=== PATIENT | male | born 1955 | race Caucasian/White ===

== ENCOUNTER → 2018-05-05 | Outpatient (CLI) | payer OTHER ==
--- NOTE | 2018-05-05 16:34 | XR ---
EXAMINATION TYPE: XR chest 2V DATE OF EXAM: 05/05/2018 COMPARISON: None HISTORY: 63 year-old male shortness of breath TECHNIQUE: Frontal and lateral views FINDINGS: Heart normal size. Aorta and pulmonary vasculature within normal limits. Mild interstitial prominence have a chronic appearance. No consolidation or pleural effusion. IMPRESSION: Chronic appearing changes without acute cardiopulmonary process.
== END | disposition home or self-care (01) ==
LOC: RADXRMAIN 16:16
PROVIDERS: ATTEND Family Medicine
DX: R06.02 Shortness of breath (principal)
CPT/HCPCS: 71046

== ENCOUNTER → 2018-07-14 | Outpatient (CLI) | payer MEDICARE, OTHER ==
--- NOTE | 2018-07-14 20:21 | CONS ---
CONSULTATION REASON FOR CONSULTATION: Obstructive sleep apnea. 63-year-old male patient diagnosed having obstructive sleep apnea more than 10 years ago. After his initial machine, the patient updated his machine around 2 years ago and he has a Resmet air sense unit which is set at a pressure of 7 cm of water. He is using an Airfit P10 nose pillow. He was asked by his Medicare to come in and establish himself at our sleep center for further care. He is also requesting a refill on supplies. While on treatment, he has been successfully treated. The patient has no snoring. He does not quit breathing while on the treatment. He has been using CPAP for more than 10 years and his new machine was given to him around 2-3 years ago. Medicare demanded this evaluation. No insomnia. No choking. No gasping. No nocturia. No sleepwalking or sleep talking. A few panic attacks have been reported. No palpitation. He goes to bed around 1:00 am, wakes up 9:00 am in the morning. Averages around 7-8 hours of sleep. He wears a bite splint. No snoring while on the treatment. No recent weight gain or weight loss. He thinks his treatment has been essentially successful for now and his [place] score is only 2. PAST MEDICAL HISTORY: Obstructive sleep apnea. PAST SURGICAL HISTORY: Hernia repair. DRUG ALLERGIES: HAYFEVER. OUTPATIENT MEDICATION: Omeprazole 20 mg p.o. daily. He was given recently a prednisone burst taper regarding an acute pulmonary respiratory irritant exposure. He has also taking Fioricet on a p.r.n. basis for tension headaches. SOCIAL HISTORY: The patient is a nonsmoker. No history of alcohol, no history of IV drugs. FAMILY HISTORY: Negative for sleep apnea. REVIEW OF SYSTEMS: Fourteen-point review of system was done. Positive findings are mentioned above in history of present illness. His weight has been stable at 180. Takes no naps during the day. He sleeps on his side. No TV watching in the bedroom. No hallucinations. No sleep paralysis. No falling asleep while driving. No heartburn at this point in time. PHYSICAL EXAMINATION: BP is 151/77, pulse 78, respirations 16, temperature 98.0. Saturation 95% on room air. Height is 5 feet, 7 inches, weight is 187. Neck size 16 inches. GENERAL APPEARANCE: Calm, comfortable. Head is atraumatic, normocephalic. NECK: Supple. No JVD. No goiter. No neck masses. Mallampati class IV. LUNGS: Clear to auscultation. HEART: Sounds regular rate and rhythm. Normal S1, S2. No S3. No murmurs. ABDOMEN: Soft, nontender. No organomegaly. EXTREMITIES: No edema. No cyanosis or clubbing. Neurological is alert x3. No focal neurological deficits. PSYCHIATRIC: Negative for anxiety or depression. Skin is negative for any wounds or ulceration. IMPRESSION: Obstructive sleep apnea currently on CPAP pressure of 7 cm of water. Treatment is successful and the patient has no hypersomnia or sleepiness. PLAN: 1. Continue CPAP at same level of pressure which is 7 cm of water. 2. The patient is using an AirFit P10 nose pillows. I offered him a Dream wear under the nose mask which he liked. This will be used as a medium size. 3. Implement good sleep hygiene measures. 4. See me back in a year's time in follow up. 5. I do not see the need to do any adjustments on the CPAP unit. He does not need any further testing. He will see me back in a year's time. Appropriate prescriptions will be renewed. MMODL / IJN: [id number] /
== END ==
LOC: SLEEP 14:47
PROVIDERS: ATTEND Internal Medicine Critical Care Medicine
DX: G47.33 Obstructive sleep apnea (adult) (pediatric) (principal); Z99.89 Dependence on other enabling machines and devices; Z79.899 Other long term (current) drug therapy; Z91.048 Other nonmedicinal substance allergy status
CPT/HCPCS: 99211

== ENCOUNTER → 2019-11-09 | Outpatient (CLI) | payer MEDICARE, OTHER ==
--- NOTE | 2019-11-09 14:28 | XR ---
EXAMINATION TYPE: XR Hip Complete LT DATE OF EXAM: 11/09/2019 COMPARISON: NONE HISTORY: Pain TECHNIQUE: 2 views submitted FINDINGS: There is no evidence of erosive change or acute fracture. There is moderate to severe arthropathy of the hip joint with hypertrophic change of the acetabulum. IMPRESSION: 1. Arthropathy correlate for femoral acetabular impingement.
== END | disposition home or self-care (01) ==
LOC: RADXRMAIN 13:22
PROVIDERS: ATTEND Family Medicine
DX: M12.852 Other specific arthropathies, not elsewhere classified, left hip (principal)
CPT/HCPCS: 73502

== ENCOUNTER → 2019-12-06 | Outpatient (CLI) | payer MEDICARE, OTHER | END | disposition home or self-care (01) | LOC: LABWHC1 10:45 | PROVIDERS: ATTEND Urology | DX: R97.20 Elevated prostate specific antigen [PSA] (principal) | CPT/HCPCS: 36415; 84153 ==

== ENCOUNTER → 2019-12-28 | Outpatient (CLI) | payer MEDICARE, OTHER | END | disposition home or self-care (01) | LOC: LABWHC1 10:00 | PROVIDERS: ATTEND Family Medicine | DX: R05 Cough (principal) | CPT/HCPCS: U0003; C9803 ==

== ENCOUNTER → 2020-02-24 | Outpatient (CLI) | payer MEDICARE, OTHER | END | disposition home or self-care (01) | LOC: LABWHC1 10:50 | PROVIDERS: ATTEND Radiology Radiation Oncology | DX: C61 Malignant neoplasm of prostate (principal) | CPT/HCPCS: 36415; 84153 ==

== ENCOUNTER → 2020-02-28 | Outpatient (CLI) | payer MEDICARE, OTHER ==
--- NOTE | 2020-03-01 08:27 | MR ---
EXAMINATION TYPE: MR Prostate wo/w con DATE OF EXAM: 02/28/2020 COMPARISON: None. IMAGE QUALITY: . INDICATION: malignant neoplasm prostate PSA: 4.5 ng/ml on February 24, 2020 Recent Biopsy and Date: January 11, 2020 Pathology Report (If Applicable): Prostatic adenocarcinoma [place] score 3+4 = 7 left lateral base ap proximately 50% tissue 5 mm length, adenocarcinoma [place] 3+4 = 770% of tissue 9 mm in length. Left mid core adenocarcinoma Melissa grade 3+4 = 720% of tumor measuring 3 mm length TECHNIQUE: Examination was performed using a 3T MRI without an endorectal coil. Multiparametric imaging was perf ormed with T2 mutliplanar sequences, axial diffusion weighted imaging and dynamic contrast enhanced i maging, utilizing 9 mL intravenous Gadavist gadolinium contrast. FINDINGS: There is no clinically significant cancer identified. PROSTATE VOLUME: 3.5 cm SI x 2.7 cm AP x 4.5 cm LR Vol= 22.3 cc PSA DENSITY: ng/ml/cc Predicted PSA = 2.676 Exam suboptimal as T1-weighted images show persistent significant right-sided T1 hyperintense signal consistent with blood product making evaluation suboptimal. Peripheral zone shows areas of mild-to-mo derate hypointense signal on ADC mapping throughout the right aspect of the gland involving base mid and apical segments without increased signal on diffusion-weighted images. Would be scored 2 and/or 3 at several levels. Left sided peripheral zone shows a small area of hypointense signal ADC and a hor izontal linear distribution image 180 series 306 at mid segment lateral aspect without restricted dif fusion. Subtle transitional zone shows visualization of the urethra towards the apex. There is overall hetero geneous diminished signal throughout visualized portion of the central zone involving right and left aspects without definitive area of marked diminished signal. I would score as a 3. Seminal vesicles symmetric and felt within normal limits. Prostatic capsule is maintained. No adjacen t adenopathy. Ovnc-uo-xotlpans trabeculation and mild wall thickening in the poorly distended bladder. Visualized osseous structures grossly intact. No suspicious pelvic fluid collection or adenopathy. IMPRESSION: Suboptimal study with persistent significant right-sided biopsy-related hemorrhage remain ing present. A focus of clinically significant cancer is not identified. Highest Assessment Category: 3 MRI Stage: T1c N0 M0 based on review of pelvic images. False negative rates for MRI range from 5-20% depending on risk profile. Assessment Categories: 1 ? Very low (clinically significant cancer is highly unlikely to be present) 2 ? Low (clinically significant cancer is unlikely to be present) 3 ? Intermediate (the presence of clinically significant cancer is equivocal) 4 ? High (clinically significant cancer is likely to be present) 5 ? Very high (clinically significant cancer is highly likely to be present) Locations: PZ = peripheral zone; TZ = transition zone CZ=central zone; AFS = anterior fibromuscular stroma a=anterior half (i.e. PZa=anterior half of peripheral zone); pm= posterior medial (i.e PZpm) pl = postero-lateral (i.e. PZpl); p = posterior half (i.e. TZp) ; a = anterior half (i.e TZa or P Za) Other: N=no or no; E= equivocal; Y=yes EPE = extraprostatic extension NVB = neurovascular bundle NA = not applicable/not available
== END | disposition home or self-care (01) ==
LOC: RADMRIMAIN 09:12
PROVIDERS: ATTEND Radiology Radiation Oncology
DX: C61 Malignant neoplasm of prostate (principal); N42.1 Congestion and hemorrhage of prostate
CPT/HCPCS: 72197; A9585

== ENCOUNTER 2020-03-02 07:14 | Day surgery (SDC) | payer MEDICARE, OTHER ==
[2020-02-25 09:48] VITALS: BMI 29.6
--- NOTE | 2020-02-27 20:49 | P.GSHP ---
History of Present Illness H&P Date: 02/27/20 Chief Complaint: Prostate cancer The patient is a 64-year-old white male whose PSA level keara to 4.7 in October 2019. His father had prostate cancer. A repeat PSA level was again 4.7. He underwent a prostate ultrasound, revealing a prostate volume of 26 mL. 3 of 12 biopsies showed [place] 7 adenocarcinoma, all on the left side. He has chosen to be treated with IMRT and has elected to undergo SpaceOAR implant prior to receiving radiation therapy to reduce the likelihood of radiation proctitis. - Constitutional Constitutional: Reports chronic headaches, Reports weight gain - Genitourinary (Male) Genitourinary: Reports nocturia Past Medical History Past Medical History: Cancer, Prostate Disorder, Sleep Apnea/CPAP/BIPAP Additional Past Medical History / Comment(s): prostate cancer. reactive airway disorder. dizziness History of Any Multi-Drug Resistant Organisms: None Reported Past Surgical History: Hernia Repair Past Anesthesia/Blood Transfusion Reactions: Motion Sickness, Postoperative Nausea & Vomiting (PONV) Additional Past Anesthesia/Blood Transfusion Reaction / Comment(s): son-PONV Smoking Status: Never smoker - Past Family History Father Family Medical History: Cancer, Prostate Disorder Additional Family Medical History / Comment(s): prostate cancer Medications and Allergies Home Medications Medication Instructions Recorded Confirmed Type Albuterol Inhaler [Ventolin Hfa 1 puff INHALATION DAILY PRN 02/25/20 02/25/20 History Inhaler] Beclomethasone Dipropionate [Qvar 2 puff INHALATION BID 02/25/20 02/25/20 History 40 mcg Redihaler] Butalb/Acetaminophen/Caffeine 1 - 2 cap PO DAILY PRN 02/25/20 02/25/20 History [Fioricet 50-300-40 mg Capsule] Cholecalciferol [Vitamin D3 (25 1,000 unit PO DAILY 02/25/20 02/25/20 History Mcg = 1000 Iu)] Glucosam/Filipe-Msm1/C/[place]/Bosw 1 each PO DAILY 02/25/20 02/25/20 History [Glucosamine-Chondroitin Tablet] Niacinamide 500 mg PO DAILY 02/25/20 02/25/20 History Vit C/E/Zn/Coppr/Lutein/Zeaxan 1 each PO DAILY 02/25/20 02/25/20 History [Preservision Areds 2 Softgel] Zinc 50 mg PO DAILY 02/25/20 02/25/20 History Allergies Allergy/AdvReac Type Severity Reaction Status Date / Time No Known Allergies Allergy Verified 02/25/20 09:33 Surgical - Exam - General well developed, well nourished, no distress - Respiratory normal respiratory effort - Abdomen Abdomen: soft, non tender, no guarding, no rigid, no rebound Hernia: umbilical - Genitourinary normal penis with no external lesions, testicles non-tender - Rectum Rectum: normal sphincter tone, no masses, other (Prostate palpably normal) - Psychiatric oriented to time, oriented to person, oriented to place, speech is normal, memory intact Assessment and Plan (1) Malignant neoplasm of prostate Status: Acute Code(s): C61 - MALIGNANT NEOPLASM OF PROSTATE SNOMED Code(s): 083675729 Plan: The SpaceOar implant has been reviewed in detail with the patient. He understands that the rationale for this is to create separation between the prostate and rectum, thus reducing the risk of radiation proctitis. The material begins to breakdown 12-13 weeks following implant, and is reabsorbed by the body. Risks include anesthesia, bleeding, infection, and perineal discomfort. He understands that if the rectal wall is perforated the procedure will need to be aborted.
[~2020-03-02 07:14] MED LIST: DEXAMETHASONE SOD PHOSPHATE 4 MG/ML 1 ML VIAL IV ONE; HYDROmorphone 0.5 MG/0.5 ML SYRINGE IVP PRN; LACTATED RINGERS 1,000 ML IV SCH; LIDOCAINE 1% (10MG/ML) FOR IV START INTRADERMA PRN; ONDANSETRON 4 MG/2 ML VIAL IVP ONE
[2020-03-02] MEDS ORDERED: LIDOCAINE 1% INJ 10MG/ML (20 ML MDV) ONE (08:33)
[2020-03-02] MEDS ORDERED: PROPOFOL 10 MG/ML 20 ML VIAL IV ONE (08:33)
[2020-03-02] MEDS ORDERED: MIDAZOLAM 2 MG/2 ML VIAL ONE (08:33)
[2020-03-02] MEDS ORDERED: fentaNYL (PF) 50 MCG/ML 2 ML AMP ONE (08:33)
[2020-03-02] MEDS ORDERED: GLYCOPYRROLATE 0.2 MG/ML 2 ML VIAL ONE (08:33)
[2020-03-02] MEDS ORDERED: KETAMINE 10 MG/ML 20 ML VIAL ONE (08:33)
[2020-03-02] MEDS ORDERED: LIDOCAINE 2% INJ 20 MG/ML SQ ONE (08:49)
--- NOTE | 2020-03-02 09:21 | P.OP ---
Date of Procedure: 03/02/20 Preoperative Diagnosis: Adenocarcinoma of the prostate Postoperative Diagnosis: Same Procedure(s) Performed: Placement of gold fiducial markers, SpaceOAR implant Anesthesia: MAC Surgeon: Art Castillo Estimated Blood Loss (ml): 10 IV fluids (ml): 300 Pathology: none sent Condition: stable Disposition: PACU Indications for Procedure: The patient is a 64-year-old white male whose PSA level keara to 4.7 in October 2019. His father had prostate cancer. A repeat PSA level was again 4.7. He underwent a prostate ultrasound, revealing a prostate volume of 26 mL. 3 of 12 biopsies showed Melissa 7 adenocarcinoma, all on the left side. He has chosen to be treated with IMRT and has elected to undergo SpaceOAR implant prior to receiving radiation therapy to reduce the likelihood of radiation proctitis. Fiducial gold markers will also be placed at Dr. Carlin's request. Operative Findings: 1 cm separation created between prostate and rectum. Description of Procedure: The patient was taken to the operating room and placed in the dorsolithotomy position, with his legs supported in Candido stirrups. The external genitalia was prepped and draped sterilely. The Bruel and Kjaer transrectal ultrasound probe was placed intrarectally. The prostate was imaged. The probe was then placed within the stabilizing stand. Using the grid, the desired locations of the gold fiducial markers were identified. Lidocaine was injected subcutaneously. On the right side, the single gold fiducial marker was placed laterally at the mid gland level. On the left side, to go fiducial markers were placed, one at the base of the other at the apex. A spinal needle was then advanced under ultrasonic guidance to the level of the urogenital diaphragm, and lidocaine was used to infiltrate the tissues as the needle was withdrawn. Next, the SpaceOAR needle was passed through the midline of the perineum, 1-2 cm anterior to the anal opening. The needle was slowly advanced under ultrasonic guidance until the needle tip was located within the fat plane between the prostate and rectum, at the level of the mid prostate gland. The needle was confirmed to be midline on the axial imaging. A small amount of normal saline was injected for hydrodissection. Next, the SpaceOAR components were mixed and loaded into the Y connector per protocol. The Y connector was then connected to the needle, and the components were injected slowly over a course of approximately 12 seconds. A total of 10 ml was injected. Significant distance was created between the prostate and rectum, as desired. It should be noted that at no point was there any concern of rectal perforation. The needle was withdrawn, as well as the transrectal ultrasound probe, and the procedure was terminated. The patient tolerated the procedure well and was taken to the recovery room in stable condition.
[2020-03-02 09:30] VITALS: TEMP 96.8
[2020-03-02 10:02] VITALS: RESP 16
[2020-03-02 10:27] VITALS: BP 139/87; PULSE 57
== END 2020-03-02 10:41 | disposition home or self-care (01) ==
LOC: OR 07:14
PROVIDERS: ATTEND Urology
DX: C61 Malignant neoplasm of prostate (principal); R51.9 Headache, unspecified; G89.29 Other chronic pain; G47.30 Sleep apnea, unspecified; J45.909 Unspecified asthma, uncomplicated; K08.409 Partial loss of teeth, unspecified cause, unspecified class; G47.33 Obstructive sleep apnea (adult) (pediatric); Z99.89 Dependence on other enabling machines and devices; Z87.19 Personal history of other diseases of the digestive system; Z98.890 Other specified postprocedural states; Z87.898 Personal history of other specified conditions; Z91.89 Other specified personal risk factors, not elsewhere classified; Z79.51 Long term (current) use of inhaled steroids; Z79.899 Other long term (current) drug therapy; Z80.42 Family history of malignant neoplasm of prostate; Z84.89 Family history of other specified conditions
CPT/HCPCS: 55874; 55876; J2001 ×2; J2250; J1100; J2405; J0690; J3010; J2704

== ENCOUNTER → 2020-03-30 | Outpatient (CLI) | payer MEDICARE, OTHER ==
--- NOTE | 2020-03-30 20:13 | CONS ---
CONSULTATION DATE OF SERVICE: 03/30/2020 This 64-year-old gentleman ho has been evaluated in the sleep center for obstructive sleep apnea-hypopnea syndrome. HISTORY OF PRESENT ILLNESS/SLEEP-WAKE EVALUATION: The patient has had a history of obstructive sleep apnea for more than 10 years. He is using his equipment every night for the whole night. According to his , he does not snore with the machine. He may wake up from sleep 2 or 3 times with one episode of nocturia. [place] Sleepiness Scale today is 5, which is in normal range. He does not take any naps. His sleep schedule is from 1 a.m. until 9 a.m. Sometimes he has problems with falling asleep, although he has no TV in the bedroom. He usually sleeps on the back position. I checked his CPAP unit. CPAP pressure is 8 cm of water. Usage is every night and 29/30 nights for more than 4 hours with average usage 7.3 hours per night. Leak is 6 L/minute, which is acceptable. Apnea-hypopnea index is only 1.7, which is perfect. The patient is using a DreamWear medium-sized [id number] mask and he likes it. PAST MEDICAL HISTORY: Positive for arthritis prostate carcinoma, several episodes of skin cancer which was squamous cell and basal cell. Headaches. PAST SURGICAL HISTORY: Surgery for basal cell and squamous cell carcinoma of the skin, hernia repair, radiation therapy for prostate cancer. MEDICATIONS: Fioricet twice a month. SOCIAL HISTORY: Negative for smoking or using alcohol. FAMILY HISTORY: Stroke. REVIEW OF SYSTEMS: Episodes of headaches. PHYSICAL EXAMINATION: GENERAL: A pleasant gentleman without distress. VITAL SIGNS: BP 130/80, HR 62, RR 15, height 5 feet 8 inches, weight 198, body mass index 30.1, temperature 98.0, oxygen saturation at room air 97%. HEENT: PERRLA, EOMI. Evaluation of oropharynx showed tongue protrudes midline. Low position of soft palate. Mallampati IV. NECK: Supple. No JVD. Thyroid is not palpable. LUNGS: Clear to percussion and to auscultation. Good air exchange. No wheezing or rhonchi. HEART: S1, S2 regular. No murmurs, gallops or rubs. ABDOMEN: Soft and nontender. Bowel sounds are present. No organomegaly appreciated. EXTREMITIES: No clubbing or cyanosis. MANAGER DATA WAREHOUSE: Awake, alert, and oriented X3. Cranial nerves 2 to 7 intact. There is no fasciculation or atrophy. noted. No focal deficits observed. IMPRESSION: 1. Severe obstructive sleep apnea-hypopnea syndrome per results of home sleep apnea test in 2019. At that time apnea-hypopnea index was 38.1. The patient demonstrated practically 100% compliance with treatment. Normal aspiration on CPAP. 2. Headaches. 3. History of prostate carcinoma, treated by radiation. 4. History of arthritis. 5. History of basal cell cancer and squamous cell cancer of the skin, treated surgically. 6. Status post hernia repair. PLAN: 1. Patient will continue to use CPAP equipment every night for the whole night. 2. Prescription for all necessary CPAP supplies, including a DreamWear medium-sized [id number] mask, tube, filters. 3. Precautions related to driving. No driving if feeling any sleepiness. 4. Watching and losing weight. 5. Follow-up visit in 6 months. Thank you very much for allowing me to participate in the management of your patient. Sincerely, Mitchel King MD, PhD, FAASM Diplomat of [place] [employer] [place] [employer] English Language Learner Tutor of [facility] [place] MMODL / IJN: [id number] /
== END | disposition home or self-care (01) ==
LOC: SLEEP 16:07
PROVIDERS: ATTEND Internal Medicine
DX: G47.33 Obstructive sleep apnea (adult) (pediatric) (principal); R51.9 Headache, unspecified; Z99.89 Dependence on other enabling machines and devices; Z85.46 Personal history of malignant neoplasm of prostate; Z87.39 Personal history of other diseases of the musculoskeletal system and connective tissue; Z85.828 Personal history of other malignant neoplasm of skin; Z98.890 Other specified postprocedural states
CPT/HCPCS: 99211

== ENCOUNTER → 2020-04-26 | Outpatient (CLI) | payer MEDICARE, OTHER ==
--- NOTE | 2020-04-26 18:33 | MR ---
EXAMINATION TYPE: MR lumbar spine wo/w con DATE OF EXAM: 04/26/2020 COMPARISON: None HISTORY: Numbness in feet, neuropathy TECHNIQUE: Multiplanar, multisequence images of the lumbar spine were acquired utilizing 9.0 mL intravenous Gada vist gadolinium contrast. L1-L2: Normal disc appearance without desiccation. No herniation, protrusion or disc bulging. No ca nal stenosis is present. Foramina are patent bilaterally. L2-L3: Minimal circumferential disc bulge causes slight anterior mass effect on the thecal sac. Only mild spinal stenosis. L3-L4: Posterior broad-based disc bulge causes mild anterior mass effect on the thecal sac. There is facet arthropathy change. L4-L5: Posterior broad-based disc bulge causes mild anterior mass effect on the thecal sac. There is facet arthropathy change. L5-S1: Posterior disc bulge is present, there may be contact with the proximal left S1 nerve root. Th ere is facet arthropathy change. Lumbar segments are intact. No paraspinal masses are identified. Conus medullaris has a normal appe arance. There is multilevel spondylosis with endplate discogenic marrow signal change. Loss of disc h eight and signal is present intervertebral levels especially L2-3, L3-4 and L4-5. There is no signifi cant spinal stenosis or foraminal encroachment with exception of the inferior aspect of the L2-3 and L3-4 foramina on the right. No abnormal enhancement following contrast administration IMPRESSION: Mild degenerative disc disease, facet arthropathy.
== END | disposition home or self-care (01) ==
LOC: RADMRIMAIN 14:29
PROVIDERS: ATTEND Psychiatry & Neurology Neurology
DX: M51.16 Intervertebral disc disorders with radiculopathy, lumbar region (principal); M47.26 Other spondylosis with radiculopathy, lumbar region
CPT/HCPCS: 72158; A9585

== ENCOUNTER → 2020-05-09 | Outpatient (CLI) | payer MEDICARE, OTHER | END | disposition home or self-care (01) | LOC: LABWHC1 13:06 | PROVIDERS: ATTEND Psychiatry & Neurology Neurology | DX: G62.9 Polyneuropathy, unspecified (principal); Z79.899 Other long term (current) drug therapy | CPT/HCPCS: 36415; 82306; 82607; 83036 ==

== ENCOUNTER → 2020-06-05 | Outpatient (CLI) | payer MEDICARE, OTHER | END | disposition home or self-care (01) | LOC: LABWHC1 11:34 | PROVIDERS: ATTEND Radiology Radiation Oncology | DX: C61 Malignant neoplasm of prostate (principal); Z85.828 Personal history of other malignant neoplasm of skin; Z00.6 Encounter for examination for normal comparison and control in clinical research program | CPT/HCPCS: 36415; 84153 ==

== ENCOUNTER → 2020-10-09 | Outpatient (CLI) | payer MEDICARE, OTHER | END | disposition home or self-care (01) | LOC: LABWHC1 08:35 | PROVIDERS: ATTEND Radiology Radiation Oncology | DX: Z00.6 Encounter for examination for normal comparison and control in clinical research program (principal); C61 Malignant neoplasm of prostate; Z85.828 Personal history of other malignant neoplasm of skin | CPT/HCPCS: 36415; 84153 ==

== ENCOUNTER → 2020-10-26 | Outpatient (CLI) | payer MEDICARE, OTHER ==
--- NOTE | 2020-10-26 20:29 | SFUN ---
SLEEP CENTER FOLLOW UP NOTE DATE OF SERVICE: 10/26/2020 This 65-year-old gentleman has been followed in Sleep Center for treatment of obstructive sleep apnea-hypopnea syndrome. The patient continues to use CPAP equipment every night. No snoring with CPAP. [place] Sleepiness Scale is 5, which is normal. The patient is getting all his CPAP supplies on time. I checked his CPAP unit. Pressure is 8 cm of water. Usage is 30/30 nights for more than 4 hours, average 6.2 hours per night. Leak is 8 L/minute, which is in normal range. Apnea-hypopnea index is 2.1, which is totally normal. MEDICATIONS: 1. Gabapentin 400 mg 4 times a day. 2. Q 40 mcg twice a day. 3. Niacinamide 500 mg twice a day. PHYSICAL EXAMINATION: GENERAL: Pleasant patient in no distress. VITAL SIGNS: BP 140/75, HR 52, RR 12, height 5 feet 8 inches, weight 198.6, which is about the same as during the previous visit. Body mass index 30.2. Temperature 97.4. Oxygen saturation at room air 95%. HEENT: PERRLA, EOMI, evaluation of oropharynx showed tongue protrudes midline. Extremely low position of soft palate; Mallampati IV. NECK: Supple, no JVD. Thyroid is not palpable. LUNGS: Clear to percussion and to auscultation. Good air exchange. No wheezing or rhonchi. HEART: S1, S2 regular. No murmurs, gallops, or rubs. ABDOMEN: Soft and nontender. Bowel sounds are present. No organomegaly appreciated. EXTREMITIES: No clubbing or cyanosis. SUPERVISOR ROD PLACING: Awake, alert, and oriented X3. Cranial nerves 2 to 7 intact. There is no fasciculation or atrophy. noted. No focal deficits observed. IMPRESSION: 1. Severe obstructive sleep apnea-hypopnea syndrome. Original apnea-hypopnea index 38.1. The patient demonstrated 100% compliance with treatment, benefitting from treatment. Normal respiration on CPAP. 2. History of headaches; less headaches after the patient was treated with CPAP. 3. History of prostate carcinoma, treated by radiation. 4. History of arthritis. 5. History of basal cell carcinoma and squamous cell carcinoma of the skin, treated surgically. 6. Status post hernia repair. PLAN: 1. Patient will continue to use PAP equipment every night for the whole night. 2. Sleep hygiene with regular time in bed for at least 7-1/2 to 8 hours. 3. Precautions related to driving. No driving if feeling sleepiness. 4. I will maintain all necessary prescription for PAP supplies including mask, tube, filters. 5. Watching weight. 6. Follow-up visit in 6 months or earlier if patient has any problems. Thank you very much for allowing me to participate in the management of your patient. Sincerely, Mitchel King MD, PhD, FAASM Diplomat of [place] [employer] Sleep Medicine Board of [place] [employer] Pollution Control Technician of [facility] [place] MMODL / IJN: [id number] /
== END ==
LOC: SLEEP 13:19
PROVIDERS: ATTEND Internal Medicine
DX: G47.33 Obstructive sleep apnea (adult) (pediatric) (principal); M19.90 Unspecified osteoarthritis, unspecified site; Z99.89 Dependence on other enabling machines and devices; Z85.46 Personal history of malignant neoplasm of prostate; Z92.3 Personal history of irradiation; Z85.828 Personal history of other malignant neoplasm of skin; Z98.890 Other specified postprocedural states

== ENCOUNTER → 2021-04-26 | Outpatient (CLI) | payer MEDICARE, OTHER ==
--- NOTE | 2021-04-26 16:04 | SFUN ---
SLEEP CENTER FOLLOW UP NOTE DATE OF SERVICE: 04/26/2021. 65-year-old gentleman has been followed in Sleep Center for treatment of obstructive sleep apnea-hypopnea syndrome. The patient continues to use his CPAP equipment every night for the whole night, getting his CPAP supplies in time. [place] Sleepiness Scale today is 7 which is in normal range. I checked CPAP unit. Pressure is 8 cm of water. Usage is 30/30 nights for more than 4 hours, average 7.2 hours per night. Leak is 6 L/minute, which is normal range. Apnea- hypopnea index is 3.0, which is totally normal. MEDICATIONS: Gabapentin 400 mg once a day, Q-Eliz 20 mg 2 puffs in 24 hours period. PHYSICAL EXAMINATION: GENERAL: Patient in no distress. BP 118/74, HR 71, RR 16, weight 202.4, height 5 feet 8 inches, temperature 97.6, oxygen saturation at room air 94%. Oropharynx: Extremely low position of soft palate, Mallampati 4. NECK: Supple, no JVD. Thyroid is not palpable. LUNGS: Clear to percussion and to auscultation. Good air exchange. No wheezing or rhonchi. HEART: S1, S2 regular. No murmurs, gallops, or rubs. ABDOMEN: Soft and nontender. Bowel sounds are present. No organomegaly appreciated. EXTREMITIES: No clubbing or cyanosis. LUMBER PLANER: Awake, alert, and oriented X3. Cranial nerves 2 to 7 intact. There is no fasciculation or atrophy. noted. No focal deficits observed. IMPRESSION: 1. Obstructive sleep apnea-hypopnea syndrome in severe range. Apnea-hypopnea index originally 38.1. The patient demonstrated great compliance with treatment, benefitting from treatment, normal respiration on CPAP. 2. History of prostate CA treated by radiation. PSA presently less than 1. 3. History of headaches, improved on CPAP. 4. History of arthritis. 5. History of basal cell and squamous cell carcinoma of the skin, treated surgically. 6. Status post hernia repair. PLAN: 1. Patient will continue to use PAP equipment every night for the whole night. 2. Sleep hygiene with regular time in bed for at least 7-1/2 to 8 hours. 3. Precautions related to driving. No driving if feeling sleepiness. 4. I will maintain all necessary prescription for PAP supplies including mask, tube, filters. 5. Watching weight. 6. Follow-up visit in 6 months or earlier if patient has any problems. Thank you very much for allowing me to participate in the management of your patient. Sincerely, Mitchel King MD, PhD, FAASM Diplomat of [employer] Sleep Medicine Board of [employer] Wafer Batter Mixer of [facility] [employer] [id number] / LOKESH: [id number] /
== END ==
LOC: SLEEP 13:36
PROVIDERS: ATTEND Internal Medicine
DX: G47.33 Obstructive sleep apnea (adult) (pediatric) (principal); M19.90 Unspecified osteoarthritis, unspecified site; Z98.890 Other specified postprocedural states; Z99.89 Dependence on other enabling machines and devices; Z85.46 Personal history of malignant neoplasm of prostate; Z85.828 Personal history of other malignant neoplasm of skin; Z86.69 Personal history of other diseases of the nervous system and sense organs

== ENCOUNTER → 2021-05-03 | Outpatient (CLI) | payer MEDICARE, OTHER ==
--- NOTE | 2021-05-03 07:59 | CT ---
EXAMINATION TYPE: CT brain wo con DATE OF EXAM: 05/03/2021 HISTORY: headaches x30 years, new symptom of dizziness. CT DLP: 1165 mGycm. Automated Exposure Control for Dose Reduction was Utilized. TECHNIQUE: CT scan of the head is performed without contrast. COMPARISON: None. FINDINGS: There is no acute intracranial hemorrhage or midline shift identified. There is mild diff use ventricular and sulcal prominence consistent with mild diffuse age-related cerebral atrophy. Sli ght asymmetry of the ventricles presumed congenital variant. Bilateral basal ganglia calcifications a re present. Rabago-white matter differentiation fairly well maintained. Soft tissue density suspicious for cerumen in the deep left external auditory canal axial image 15. The globes are intact and the v isualized sinuses are clear. No suspicious opacification of mastoid air cells. IMPRESSION: No acute intracranial hemorrhage or midline shift.
--- NOTE | 2021-05-03 08:29 | US ---
EXAMINATION TYPE: US carotid duplex BILAT DATE OF EXAM: 05/03/2021 COMPARISON: NONE CLINICAL HISTORY: G45.9 TIA. EXAM MEASUREMENTS: RIGHT: Peak Systolic Velocity (PSV) cm/sec ----- Right CCA: 115.7 ----- Right ICA: 110.3 ----- Right ECA: 116.8 ICA/CCA ratio: 1.0 RIGHT: End Diastole cm/sec ----- Right CCA: 28.5 ----- Right ICA: 37.7 ----- Right ECA: 24.2 LEFT: Peak Systolic Velocity (PSV) cm/sec ----- Left CCA: 78.3 ----- Left ICA: 68.7 ----- Left ECA: 97.2 ICA/CCA ratio: 0.9 LEFT: End Diastole cm/sec ----- Left CCA: 21.0 ----- Left ICA: 30.6 ----- Left ECA: 19.3 VERTEBRALS (direction of flow): Right Vertebral: Antegrade Left Vertebral: Antegrade No significant velocity elevations, mild atherosclerotic changes. IMPRESSION: No hemodynamically significant stenosis identified in either internal carotid artery . Criteria for Assigning % of Stenosis / Diameter reduction (Estimation based on the indirect measurements of the internal carotid artery velocities (ICA PSV). 1. Normal (no stenosis)=ICA PSV < 125 cm/s: ratio < 2.0: ICA EDV<40 cm/s. 2. Less than 50% stenosis=ICA PSV < 125 cm/s: ratio < 2.0: ICA EDV<40 cm/s. 3. 50 to 69% stenosis=ICA PSV of 125 to 230 cm/s: ration 2.0 ? 4.0: ICA EDV 40-100 cm/s. 4. Greater than 70% stenosis to near occlusion= ICA PSV > 230 cm/s: ratio > 4.0: ICA EDV > 100 cm/s. 5. Near occlusion= ICA PSV velocities may be low or undetectable: variable ratio and ICA EDV. 6. Total occlusion=unable to detect flow.
--- NOTE | 2021-05-03 17:00 | ECHOF ---
Referral Reason:G45.9 MEASUREMENTS -------- HEIGHT: 172.7 cm WEIGHT: 88.5 kg BP: IVSd: 1.3 cm (0.6 - 1.1) LVIDd: 4.7 cm (3.9 - 5.3) LVPWd: 1.1 cm (0.6 - 1.1) IVSs: 2.0 cm LVIDs: 3.3 cm LVPWs: 1.3 cm RVIDd: 3.4 cm (< 3.3) LAESV Index (A-L): 30.04 ml/m Ao Diam: 3.8 cm (2.0 - 3.7) LA Diam: 3.9 cm (2.7 - 3.8) AV Cusp: 2.2 cm (1.5 - 2.6) EPSS: 0.5 cm MV E Neil: 1.00 m/s MV DecT: 176 ms MV A Neil: 0.64 m/s MV E/A Ratio: 1.56 RAP: 5.00 mmHg RVSP: 38.41 mmHg MV EF SLOPE: 76.27 mm/s (70 - 150) MV EXCURSION: 20.27 mm (> 18.000) FINDINGS -------- Resting bradycardia (HR<60bpm). This was a technically adequate study. The left ventricular size is normal. There is mild concentric left ventricular hypertrophy. Overa ll left ventricular systolic function is normal with, an EF between 55 - 60 %. The right ventricle is mildly enlarged. LA is midly dilated 29-33ml/m2. The right atrial size is normal. Interatrial and interventricular septum intact. There is no evidence of aortic regurgitation. There is no evidence of aortic stenosis. Mild mitral regurgitation is present. Mild tricuspid regurgitation present. There is borderline pulmonary artery hypertension. The righ t ventricular systolic pressure, as measured by Doppler, is 38.41mmHg. Trace/mild (physiologic) pulmonic regurgitation. The aortic root size is normal. IVC Not well visulized. There is no pericardial effusion. CONCLUSIONS -------- 1. The left ventricular size is normal. 2. There is mild concentric left ventricular hypertrophy. 3. Overall left ventricular systolic function is normal with, an EF between 55 - 60 %. 4. The right ventricle is mildly enlarged. 5. LA is midly dilated 29-33ml/m2. 6. Mild mitral regurgitation is present. 7. Mild tricuspid regurgitation present. 8. There is borderline pulmonary artery hypertension. 9. The right ventricular systolic pressure, as measured by Doppler, is 38.41mmHg. 10. Trace/mild (physiologic) pulmonic regurgitation. RETIREMENT SPECIALIST: Miriam Pastor RDCS
== END | disposition home or self-care (01) ==
LOC: RADCTMAIN 07:14
PROVIDERS: ATTEND Family Medicine
DX: I08.1 Rheumatic disorders of both mitral and tricuspid valves (principal); I27.21 Secondary pulmonary arterial hypertension
CPT/HCPCS: 70450; 93306; 93880

== ENCOUNTER → 2021-05-16 | Outpatient (CLI) | payer MEDICARE, OTHER ==
--- NOTE | 2021-05-17 03:45 | MR ---
EXAMINATION TYPE: MR brain wo con DATE OF EXAM: 05/16/2021 COMPARISON: None HISTORY: Chronic headaches, dizziness. Multiplanar multiecho imaging of the brain without contrast. There is mild cerebral cortical atrophy appropriate for age. There is no mass effect or midline shift . There is no sign of intracranial hemorrhage. Diffusion images show no evidence of an acute infarct. On the T2 and FLAIR images there are a few scattered foci of increased signal at the watts-white katerina er junction posterior bilateral hemispheres. Total numbers less than 10 and these measure up to 5 mm. The brainstem is intact. Corpus callosum is intact. Sella turcica appears normal. There is no eviden ce of orbital mass. IMPRESSION: There are few small scattered white matter high signal foci could relate to mild microvascular ischem ia. These are peripheral and I do not suspect demyelinating disease. No evidence of cortical infarct.
--- NOTE | 2021-05-17 03:49 | MR ---
EXAMINATION TYPE: MR angio head wo con DATE OF EXAM: 05/16/2021 COMPARISON: None HISTORY: Chronic headaches, dizziness. MR angiographic images were obtained of the intracerebral arterial circulation. There is arterial flow in the anterior middle and posterior cerebral arteries. There is arterial flow in the vertebrobasilar artery system. No evidence of intracranial aneurysm or neovascularity. No mas s effect. No evidence of hemodynamic stenosis. IMPRESSION: Negative MR exam of the brain.
== END | disposition home or self-care (01) ==
LOC: RADMRIMAIN 19:52
PROVIDERS: ATTEND Psychiatry & Neurology Neurology
DX: R90.89 Other abnormal findings on diagnostic imaging of central nervous system (principal); R51.9 Headache, unspecified; R42 Dizziness and giddiness
CPT/HCPCS: 70544; 70551

== ENCOUNTER → 2021-05-28 | Outpatient (CLI) | payer MEDICARE, OTHER | END | disposition home or self-care (01) | LOC: LABWHC1 11:00 | PROVIDERS: ATTEND Psychiatry & Neurology Neurology | DX: G62.9 Polyneuropathy, unspecified (principal); Z79.899 Other long term (current) drug therapy | CPT/HCPCS: 36415; 85652; 86038; 86140 ==

== ENCOUNTER 2021-08-10 06:02 | Day surgery (SDC) | payer MEDICARE, OTHER ==
[2021-08-10] MEDS ORDERED: LACTATED RINGERS 1,000 ML IV SCH (06:11)
[2021-08-10] MEDS ORDERED: MIDAZOLAM 2 MG/2 ML VIAL IV PRN (06:11)
[2021-08-10] MEDS ORDERED: ONDANSETRON 4 MG/2 ML VIAL IVP ONE (06:11)
[2021-08-10] MEDS ORDERED: DEXAMETHASONE SOD PHOSPHATE 4 MG/ML 1 ML VIAL IV ONE (06:11)
[2021-08-10] MEDS ORDERED: fentaNYL (PF) 50 MCG/ML 2 ML AMP IVP ONE (06:57)
[2021-08-10] MEDS ORDERED: MIDAZOLAM 2 MG/2 ML VIAL IVP ONE (06:57)
[2021-08-10] MEDS ORDERED: HYDROmorphone 0.5 MG/0.5 ML SYRINGE IVP PRN (07:00)
[2021-08-10] MEDS ORDERED: ROPIVACAINE 5 MG/ML 30 ML VIAL ONE (07:24)
[2021-08-10] MEDS ORDERED: GLYCOPYRROLATE 0.2 MG/ML 2 ML VIAL ONE (07:24)
[2021-08-10] MEDS ORDERED: SODIUM CHLORIDE 0.9% (PF) 10 ML VIAL ONE (07:24)
[2021-08-10] MEDS ORDERED: HYDROmorphone (PF) 1 MG/ML ONE (07:24)
[2021-08-10] MEDS ORDERED: fentaNYL (PF) 50 MCG/ML 2 ML AMP ONE (07:24)
[2021-08-10] MEDS ORDERED: MIDAZOLAM 2 MG/2 ML VIAL ONE (07:24)
[2021-08-10] MEDS ORDERED: PROPOFOL 10 MG/ML 20 ML VIAL IV ONE (07:24)
[2021-08-10] MEDS ORDERED: ceFAZolin 1,000 MG in SODIUM CHLORIDE 0.9% 1,000 ML IRRIGATION ONE (07:27)
--- NOTE | 2021-08-10 09:20 | P.ANPRN ---
Procedure Note - Anesthesia - Nerve Block Performed Left Adductor Canal Time Out Performed: Yes (06:56) Date of Procedure: 08/10/21 Procedure Start Time: :56 Procedure Stop Time: 07:05 Location of Patient: PreOp Indication: Acute Post-Operative Pain, Requested by Surgeon (Dr Marroquin) Sedation Type: Sedate with meaningful contact maintained Preparation: Sterile Prep Position: Supine Catheter: None Needle Types: Pajunk Needle Gauge: 21 Ultrasound used to visualize needle placement: Yes Ultrasound used to observe medication spread: Yes Injectate: 0.5% Ropivacaine (see comment for volume) (15cc) Blood Aspirated: No Pain Paresthesia on Injection Noted: No Resistance on Injection: Normal Image Stored and Saved: Yes Events: Uneventful and Well Tolerated
--- NOTE | 2021-08-10 09:21 | P.ANPRN ---
Procedure Note - Anesthesia - Nerve Block Performed Left Popliteal Time Out Performed: Yes Date of Procedure: 08/10/21 Procedure Start Time: 07:06 Procedure Stop Time: 07:14 Location of Patient: PreOp Indication: Acute Post-Operative Pain, Requested by Surgeon (Dr Marroquin) Sedation Type: Sedate with meaningful contact maintained Preparation: Sterile Prep Position: Right Lateral Catheter: None Needle Types: Pajunk Needle Gauge: 21 Ultrasound used to visualize needle placement: Yes Ultrasound used to observe medication spread: Yes Injectate: 0.5% Ropivacaine (see comment for volume) (15cc +5cc PF Normal saline) Blood Aspirated: No Pain Paresthesia on Injection Noted: No Resistance on Injection: Normal Image Stored and Saved: Yes Events: Uneventful and Well Tolerated
[2021-08-10 10:18] VITALS: TEMP 96.8
[2021-08-10 11:00] VITALS: RESP 18
[2021-08-10 11:25] VITALS: BP 117/73; PULSE 59
--- NOTE | 2021-08-10 16:10 | P.OP ---
Date of Procedure: 08/10/21 Preoperative Diagnosis: Acquired deformity of the left foot Postoperative Diagnosis: Same Procedure(s) Performed: 1. Sanchez calcaneal osteotomy with allograft left foot 2. Medial displacement calcaneal osteotomy left foot 3. Flexor tendon transfer left ankle 4. Repair spring ligament left foot 5. Gastroc recession left leg Implants: 5.5 mm fully threaded headless screws 2 20 mm compression staple 20 mm x 20 mm x 10 mm cortical allograft Arthrex internal brace Anesthesia: IVETA Surgeon: Amor Marroquin Estimated Blood Loss (ml): 10 Pathology: none sent Condition: stable Disposition: PACU Description of Procedure: Prior to the patient being brought to the operating room, anesthesia administered nerve block and left lower extremity. The patient was then brought into the operating room and placed on table supine position. Timeout was taken to confirm correct patient identifiers, correct site of surgery, and correct procedure. All staff in the room in agreement with the timeout, anesthesia placed the patient under general anesthetic. A well-padded tourniquet was placed on the left thigh, and a bump underneath the left hip to internally rotate the left leg. The left leg was then prepped and draped in the usual manner. The leg was exsanguinated with an Esmarch bandage, the knee slightly flexed and then the tourniquet inflated to 250 mmHg. Attention was directed over the lateral aspect of the hindfoot where a linear incision was made at the anterior process of the calcaneus. The incision was deepened down to the subcutaneous layer careful to identify, avoid, and retract any neurovascular structures and cauterize any bleeding vessels. Blunt dissection was continued down to the periosteum just superior to the peroneal tendons. The periosteum was incised and then the peroneal tendons were dissected off the calcaneus in a full-thickness flap. The calcaneocuboid joint was identified and marked. A measurement was taken between 10 and 12 mm proximal to that to mansi the cut for the Sanchez osteotomy. A sagittal saw was used to make the Sanchez osteotomy from straight lateral to medial through the anterior process. An osteotome was used to free up any of the soft tissue attachments to allow for distraction of the osteotomy. Once that was completed, pins for the distractor placed on the distal and proximal sides of the osteotomy. The distractor was placed over the pins and push all way down to the bone. The distractor was then used to open the Sanchez osteotomy. Sizes were used to determine the proper width and height of the graft. It was determined that a 20 mm x 20 mm x 10 mm cortical allograft would be most appropriate. The allograft was then positioned in the osteotomy and impacted until it was sitting flush with the cortices of the calcaneus. Fluoroscopy was used to confirm the proper placement of the graft. Once the graft was in satisfactory incision, the drill guide for the compression staple was placed on either side of the graft. The drill holes were then made to proper depth. The staple was then inserted down to allow full depth and then the sweatband decorating machine operator released allowing the legs to compress. A tamp was then used to further impact the staple until it was as flush as possible to the bone. Fluoroscopy confirmed the proper placement of the the graft as well as the staple. Using fluoroscopy a metallic marker was used to outline the proper positioning of all medial calcaneal displacement osteotomy. The skin was marked with a marker and then another mansi was made at the midline of the previous mansi for placement of the victor hugo. A small stab incision was made to the skin and bluntly dissected down to bone. A bur was then inserted and plunged through the calcaneus until it exited the medial cortex. Utilizing the quadrant method, the far superior and inferior aspects of the calcaneus were resected. Then the bur was moved to the more lateral side of the calcaneus with the quadrant method was used to complete the osteotomy. Fluoroscopy showed that the osteotomy could be gapped and that it was fully mobile. The tuberosity fragment was then transposed medially approximately 1 cm. An elevator was used to hold the osteotomy in its correct position. Guidewires for the 5.5 cannulated screws were inserted in the posterior aspect of the calcaneus and advanced perpendicular to the angle of the osteotomy. 5.5 mm fully threaded headless screws were placed over the guidewires and fully tightened until the most proximal threads engaged the cortex of the calcaneus. Fluoroscopic imaging confirmed proper placement of the hardware and the full shift of the calcaneus. Small tamp was then used to reduce the bony ridge created by the shifting of the fragment. The surgical sites were thoroughly irrigated with antibiotic saline. Deep closure of the lateral hindfoot incision was done with 2-0 Vicryl. Subcutaneous closure was done with 4-0 Monocryl. Skin closure was done with jaret. Once the lateral procedures were completed, the bump was removed from the left hip so that the left leg could externally rotate. Attention was directed to the posterior medial aspect of the leg approximately 4-5 cm distal to the gastroc muscle belly. A linear incision was made in this area. The incision was deepened down through the subcutaneous layer utilizing blunt dissection. Care was taken to avoid any neurovascular structures and cauterize any bleeding vessels. Blunt dissection was continued down to the fascia overlying the gastroc aponeurosis. The fascia was incised and carefully dissected off of the aponeurosis. A transverse incision was made through the aponeurosis from lateral to medial full-thickness, taking care to limit damage to the underlying muscle belly. When it was completed, the ankle was dorsiflexed and a 1.5 cm gap appeared, indicating a full release. The wound is irrigated with antibiotic saline. Subcutaneous closure was completed with 4-0 Monocryl. Skin closure was done with jaret. Then attention was directed to the medial hindfoot. An incision was made beginning just distal to the posterior tibial tendon insertion and ending near the posterior distal aspect of the medial malleolus. The incision was deepened down to the subcutaneous layer careful to identify, avoid, and retract any neurovascular structures and cauterize any bleeding vessels. Blunt dissection was continued down to the deep fascia overlying the posterior tibial tendon. The fascia was incised and blunt instrumentation was inserted into the posterior tibial tendon sheath from the insertion to the distal tip of the medial malleolus. At that point the sheath was opened to expose the posterior tibial tendon. Visual inspection of the tendon showed that it had partially torn from its navicular attachment and it also an increased incised 2-3 times normal. The posterior tibial tendon was sharply excised off of its navicular attachment. Then another incision was made in the posterior medial ankle. The incision was bluntly dissected down to the flexor digitorum longus and posterior tibial tendons. The flexor digitorum longus and posterior tibial tendons were then sutured in a [id number] anastomosis. The posterior tibial tendon was then transected distal to the anastomosis and then it was pulled through the incision and the hindfoot: Removing the tendon entirely from the surgical field. The tendon sheath deep to the posterior tibial tendon was then opened to reveal the course of the flexor digitorum longus tendon. That sheath was opened and followed the tendon into the midfoot until reaching the Knot of Jared. The flexor digitorum longus tendon was transected just proximal to the knot of Jared and delivered into the surgical field. A whipstitch was then placed in the distal end of the flexor digitorum longus tendon. Then attention was directed to the spring ligament where a wedge excision of tissue was taken at the junction of the talonavicular joint. Once the wedge was removed the tissue was brought together and then repaired with 0 Vicryl. Then a small incision was made over the sustentaculum trevor. Under fluoroscopic guidance, a guidewire was placed through the sustentaculum trevor with slight downward angulation to avoid the subtalar joint. Fluoroscopic imaging confirmed that the wire was in proper position. The overdrill was performed and the hole tapped. 3.5 mm anchor containing the fiber tape suture was inserted down to proper depth. The same wire was then used to create a sdv pilot/navigator/dds operator hole in the navicular tuberosity navicular body. Once the wire was in place and confirmed to have in the proper position under fluoroscopy, the overdrill was performed. One arm from the suture from the 3.5 mm anchor was then threaded from dorsal to plantar and the other from plantar to dorsal. The tendon passer was then used to grasp the suture from the flexor digitorum longus and pull it from plantar to dorsal through the drill hole bringing the tendon into the bony tunnel. With tension placed on all suture in the proper orientation, the 4.75 swivel line anchor was inserted into the drill hole to lock the suture intended in place. Once completed all the suture was cut and the wound is thoroughly irrigated with body saline. The deep capsular closure was done with 0 Vicryl. Subcu closure was done with 4-0 Monocryl. And skin closure was done with jaret. The foot was then visually inspected and was noted to have an increase in the medial arch and that the heel was centered to the midline of the lower leg. All incisions were covered with an Arthrex jumpstart dressing. A bulky dry dressings applied to left foot, ankle, and leg. A bulky Lao dressing was applied the left leg and foot. The tourniquet was released and capillary refill return to all digits on the left foot. A well-padded, well molded plaster posterior mold/sugar tong splint was applied the left leg. The ankle was held in neutral dorsiflexion and slight inversion as the splint dried. The patient tolerated the above procedure and anesthesia well. The patient was taken recovery with vital signs stable.
== END 2021-08-10 11:46 | disposition home or self-care (01) ==
LOC: OR 06:02
PROVIDERS: ATTEND Podiatrist
DX: M66.372 Spontaneous rupture of flexor tendons, left ankle and foot (principal); M21.6X2 Other acquired deformities of left foot; M20.22 Hallux rigidus, left foot; M19.072 Primary osteoarthritis, left ankle and foot; G89.18 Other acute postprocedural pain; C61 Malignant neoplasm of prostate; C44.92 Squamous cell carcinoma of skin, unspecified; Z82.49 Family history of ischemic heart disease and other diseases of the circulatory system; Z79.899 Other long term (current) drug therapy; J45.909 Unspecified asthma, uncomplicated; Z79.51 Long term (current) use of inhaled steroids
CPT/HCPCS: 28300; 27691; 27695; 27687; 64447; 64445; 76942; C1713 ×3; J2250; J1100; J0690 ×2; J2405; J3010; J1170; J2795; J2704

== ENCOUNTER → 2021-08-16 | Outpatient (CLI) | payer MEDICARE, OTHER ==
--- NOTE | 2021-08-16 14:41 | US ---
EXAMINATION TYPE: US venous doppler duplex LE LT DATE OF EXAM: 08/16/2021 2:12 PM COMPARISON: NONE CLINICAL HISTORY: I80.9 PHLEBITIS AND THROMBOPHLEBITIS. Post op pain and redness calf area below knee . SIDE PERFORMED: Left TECHNIQUE: The lower extremity deep venous system is examined utilizing real time linear array sonog richard with graded compression, doppler sonography and color-flow sonography. VESSELS IMAGED: Common Femoral Vein Deep Femoral Vein Greater Saphenous Vein * Femoral Vein Popliteal Vein Small Saphenous Vein * Proximal Calf Veins (* superficial vessels) Left Leg: Negative for DVT thrombus visualized in Small Saphenous Vein below knee. IMPRESSION: No evidence for DVT at this time. SVT noted within a small saphenous vein below the knee.
== END | disposition home or self-care (01) ==
LOC: RADUSWWP 13:19
PROVIDERS: ATTEND Podiatrist
DX: I80.9 Phlebitis and thrombophlebitis of unspecified site (principal); M19.072 Primary osteoarthritis, left ankle and foot

== ENCOUNTER → 2021-09-20 | Outpatient (CLI) | payer MEDICARE, OTHER | END | disposition home or self-care (01) | LOC: LABWHC1 10:02 | PROVIDERS: ATTEND Radiology Radiation Oncology | DX: Z00.6 Encounter for examination for normal comparison and control in clinical research program (principal); C61 Malignant neoplasm of prostate; R35.1 Nocturia; Z92.3 Personal history of irradiation; Z85.828 Personal history of other malignant neoplasm of skin | CPT/HCPCS: 36415; 84153 ==

== ENCOUNTER → 2021-11-01 | Outpatient (CLI) | payer MEDICARE, OTHER ==
--- NOTE | 2021-11-01 13:36 | P.PN ---
Subjective DATE: 11/01/2021 FOLLOW UP VISIT. Patient with obstructive sleep apnea hypopnea syndrome return to sleep center for follow-up visit. Information from previous visit have been reviewed. Patient is using PAP equipment every night for the whole night, getting PAP supplies in time. The patient does not have significant problems with the mask, PAP unit and humidification. [place] sleepiness scale is 7. I checked PAP unit. Air filter is in good shape. PAP unit pressure 8 cm H2O. Usage is 100 % for more then 4 hours, average 7.3 hours per night. Leak is 4 l/m, which is in acceptable range. Apnea Hypopnea Index is 3.3, which is normal. MEDICATIONS:1. Gabapentin 400 mg several times a day 2. Duloxetine 30 mg once a day 3. QVar 2 puffs in 24-hour period During physical exam: GENERAL: A pleasant patient without any distress. VITAL SIGNS: BP 124/78, HR 69, RR 18 , weight 195.0, temperature 97.1, oxygen saturation at room air 95 % . HEENT: PERRLA, EOMI.low position of soft palate, Mallapati 4 . NECK: Supple. No JVD. LUNGS: Clear to percussion and to auscultation. Good air exchange. No wheezing or rhonchi. HEART: S1, S2 regular. ABDOMEN: Soft and nontender.[] EXTREMITIES: No clubbing or cyanosis. CHILD CAREGIVER: Awake, alert, and oriented x3. No focal deficit. Impressions: 1. Obstructive sleep apnea-hypopnea syndrome. Patient demonstrated great compliance with treatment, benefiting from treatment. 2. History of prostate CVA status post radiation therapy. 3. Status post left foot surgery in July 2021. 4. History of arthritis. 5. History of headaches. 6. History of basal cell and squamous cell carcinoma of the skin treated monae gically. 7. Status post hernia repair. Plan: 1. Continue using PAP equipment every night for the whole night. 2. To change air filter at least 1-2 times per month. 3. PAP unit should stay lower then position of the head. 4. Advised patient to remove all remaining water from humidifier canister daily and make it dry after each usage. Refill canister with fresh distilled water before each usage. 5. Sleep hygiene with regular time in bed for at least 8 hours. 6. Precautions related to driving. No driving if feel any sleepiness. 7. I will maintain prescription for PAP supplies including mask, tube, filters. 8. Follow up visit in 6 months or earlier if patient has any problems. 9. Watching weight. Thank you very much for allowing me to participate in the management of your patient. Mitchel King MD, PhD, FAASM. Diplomat of [employer], Sleep Medicine Board by [employer] Systems Architect of [facility] [place]
== END ==
LOC: SLEEP 13:16
PROVIDERS: ATTEND Internal Medicine
DX: G47.33 Obstructive sleep apnea (adult) (pediatric) (principal); Z86.73 Personal history of transient ischemic attack (TIA), and cerebral infarction without residual deficits; Z98.890 Other specified postprocedural states; M19.90 Unspecified osteoarthritis, unspecified site; Z85.828 Personal history of other malignant neoplasm of skin; Z99.89 Dependence on other enabling machines and devices

== ENCOUNTER → 2021-12-21 | Outpatient (CLI) | payer MEDICARE, OTHER | END | disposition home or self-care (01) | LOC: LABWHC1 10:31 | PROVIDERS: ATTEND Psychiatry & Neurology Neurology | DX: G62.9 Polyneuropathy, unspecified (principal); Z79.899 Other long term (current) drug therapy | CPT/HCPCS: 36415; 82306; 82607; 83036 ==

== ENCOUNTER → 2022-05-01 | Outpatient (CLI) | payer MEDICARE, OTHER ==
--- NOTE | 2022-05-15 12:24 | P.PN ---
Subjective DATE: 05/01/2022 FOLLOW UP VISIT. Patient with obstructive sleep apnea hypopnea syndrome return to sleep center for follow-up visit. Information from previous visit have been reviewed. Patient is using PAP equipment every night for the whole night, getting PAP supplies in time. The patient does not have significant problems with the mask, PAP unit and humidification. [place] sleepiness scale is 8, which is normal. I checked information from PAP unit and discussed it with patient. PAP unit pressure 8 cm H2O. Usage is 100 % for more then 4 hours, average 6.8 hours per night. Leak is 4 l/m, which is in acceptable range. Apnea Hypopnea Index is increased to 10.4. MEDICATIONS:1. Omeprazole 20 mg once a day 2. Gabapentin 400 mg several times a day 3. Qvar During physical exam: GENERAL: A pleasant patient without any distress. VITAL SIGNS: BP 156/77, HR 61, RR 16, weight 204.8, temperature 97.5, oxygen saturation at room air 97 % . HEENT: PERRLA, EOMI.low position of soft palate, Mallapati 4 . NECK: Supple. No JVD. LUNGS: Clear to percussion and to auscultation. Good air exchange. No wheezing or rhonchi. HEART: S1, S2 regular. ABDOMEN: Soft and nontender.[] EXTREMITIES: No clubbing or cyanosis. HOSPICE ADMITTING CLERK: Awake, alert, and oriented x3. No focal deficit. Impressions: 1. Obstructive sleep apnea-hypopnea syndrome. Patient demonstrated great compliance with treatment, benefiting from treatment. 2. Status post prostate CA, status post radiation therapy. 3. History of arthritis. 4. Status post left foot surgery in July 2021. 5. Status post basal cell and squamous cell carcinoma of the skin treated surgically. 6. History of headaches. 7. Status post hernia repair. Plan: 1. Continue using PAP equipment every night for the whole night. 2. To change air filter at least 1-2 times per month. 3. PAP unit should stay lower then position of the head. 4. Advised patient to remove all remaining water from humidifier canister daily and make it dry after each usage. Refill canister with fresh distilled water before each usage. 5. Sleep hygiene with regular time in bed for at least 8 hours. 6. Precautions related to driving. No driving if feel any sleepiness. 7. I will maintain prescription for PAP supplies including mask, tube, filters. 8. Watching weight. 9. Follow up visit in 6 months or earlier if patient has any problems. Thank you very much for allowing me to participate in the management of your patient. Mitchel King MD, PhD, FAASM. Diplomat of [place] [employer], Sleep Medicine Board by [place] [employer] Metal Patternmaker of [facility] [place]
== END ==
LOC: SLEEP 13:24
PROVIDERS: ATTEND Internal Medicine
DX: G47.33 Obstructive sleep apnea (adult) (pediatric) (principal); R51.9 Headache, unspecified; Z99.89 Dependence on other enabling machines and devices; Z85.46 Personal history of malignant neoplasm of prostate; Z85.828 Personal history of other malignant neoplasm of skin; Z48.815 Encounter for surgical aftercare following surgery on the digestive system; Z92.3 Personal history of irradiation; Z79.51 Long term (current) use of inhaled steroids
CPT/HCPCS: 99212

== ENCOUNTER → 2022-11-06 | Outpatient (CLI) | payer MEDICARE, OTHER ==
--- NOTE | 2022-11-06 17:41 | P.PN ---
Subjective DATE: 11/06/2022 FOLLOW UP VISIT. Patient with obstructive sleep apnea hypopnea syndrome return to sleep center for follow-up visit. Information from previous visit have been reviewed. Patient is using PAP equipment every night for the whole night, getting PAP supplies in time. The patient does not have significant problems with the mask, PAP unit and humidification. [place] sleepiness scale is 7, which is normal. I checked information from PAP unit. PAP unit pressure 10 cm H2O. Usage is 100 % for more then 4 hours, average 6.8 hours per night. Leak is 25 l/m, which is in acceptable range. Apnea Hypopnea Index is 5.5, which is improved from 10.4 during last visit after pressure was increased to 10 cm of water from 8 cm of water. MEDICATIONS:1. Omeprazole 20 mg once a day 2. Gabapentin 400 mg 3 times a day 3. Flomax 0.4 mg once a day 4. Duloxetine 30 mg once a day During physical exam: GENERAL: A pleasant patient without any distress. VITAL SIGNS: BP 130/83, HR 64, RR 18, weight 188.2, temperature 98.0, oxygen saturation at room air 93 % . HEENT: PERRLA, EOMI.low position of soft palate, Mallapati 4 . NECK: Supple. No JVD. LUNGS: Clear to percussion and to auscultation. Good air exchange. No wheezing or rhonchi. HEART: S1, S2 regular. ABDOMEN: Soft and nontender.[] EXTREMITIES: No clubbing or cyanosis. BEAVER TRAPPER: Awake, alert, and oriented x3. No focal deficit. Impressions: 1. Obstructive sleep apnea-hypopnea syndrome. Patient demonstrated great compliance with treatment, benefiting from treatment. 2. History of arthritis. 3. Status post radiation therapy for treatment of prostate cancer. 4. Status post hernia repair. 5. Status post left foot surgery in 2021. 6. Status post surgical treatment for basal cell and squamous cell carcinoma. 7. History of headaches. Plan: 1. Continue using PAP equipment every night for the whole night. 2. To change air filter at least 1-2 times per month. 3. PAP unit should stay lower then position of the head. 4. Advised patient to remove all remaining water from humidifier canister daily and make it dry after each usage. Refill canister with fresh distilled water before each usage. 5. Sleep hygiene with regular time in bed for at least 8 hours. 6. Precautions related to driving. No driving if feel any sleepiness. 7. I will maintain prescription for PAP supplies including mask, tube, filters. 8. Follow up visit in 6 months or earlier if patient has any problems. 9. Watching weight. Thank you very much for allowing me to participate in the management of your patient. Mitchel King MD, PhD, FAASM. Diplomat of [place] [employer] Medicine, Sleep Medicine Board by [employer] Medicine Venetian Blind Mechanic of [facility] [place]
== END ==
LOC: 3 N SLEEP 14:01
PROVIDERS: ATTEND Internal Medicine
DX: G47.33 Obstructive sleep apnea (adult) (pediatric) (principal); M19.90 Unspecified osteoarthritis, unspecified site; R51.9 Headache, unspecified; Z98.890 Other specified postprocedural states; Z48.815 Encounter for surgical aftercare following surgery on the digestive system; Z99.89 Dependence on other enabling machines and devices; Z85.46 Personal history of malignant neoplasm of prostate; Z92.3 Personal history of irradiation
CPT/HCPCS: 99212

== ENCOUNTER → 2023-03-31 | Outpatient (CLI) | payer MEDICARE, OTHER | END | disposition home or self-care (01) | LOC: LABWHC1 09:04 | PROVIDERS: ATTEND Radiology Radiation Oncology | DX: C61 Malignant neoplasm of prostate (principal); Z08 Encounter for follow-up examination after completed treatment for malignant neoplasm; Z85.46 Personal history of malignant neoplasm of prostate; Z92.3 Personal history of irradiation; Z85.828 Personal history of other malignant neoplasm of skin; R35.1 Nocturia | CPT/HCPCS: 36415; 84153 ==

== ENCOUNTER → 2023-05-21 | Outpatient (CLI) | payer MEDICARE, OTHER ==
[2023-05-21 14:32] VITALS: BP 144/86; PULSE 72; RESP 16; TEMP 98
--- NOTE | 2023-05-21 14:34 | P.PN ---
Subjective DATE: 05/21/2023 FOLLOW UP VISIT. Patient with obstructive sleep apnea hypopnea syndrome return to sleep center for follow-up visit. Information from previous visit have been reviewed. Patient is using PAP equipment every night for the whole night, getting PAP supplies in time. The patient does not have significant problems with the mask, PAP unit and humidification. [place] sleepiness scale is 6. I checked information from PAP unit. PAP unit pressure 10 cm H2O. Usage is 100% for more then 4 hours, average 7 hours per night. Leak is 4 l/m, which is in acceptable range. Apnea Hypopnea Index is 1.5, which is normal. Atrial life expectancy exceeded, but machine works well, no noise at the present time. MEDICATIONS:1. Omeprazole 20 mg once a day 2. Gabapentin 400 mg 3. Duloxetine 30 mg once a day 4. Qvar 2 puffs 2 times a day 5. Tamsulosin 0.4 mg once a day During physical exam: GENERAL: A pleasant patient without any distress. VITAL SIGNS: Please see below. HEENT: PERRLA, EOMI.low position of soft palate, Mallapati 4 . NECK: Supple. No JVD. LUNGS: Clear to percussion and to auscultation. Good air exchange. No wheezing or rhonchi. HEART: S1, S2 regular. ABDOMEN: Soft and nontender.[] EXTREMITIES: No clubbing or cyanosis. OR NURSE MANAGER: Awake, alert, and oriented x3. No focal deficit. Impressions: 1. Obstructive sleep apnea-hypopnea syndrome. Patient demonstrated great compliance with treatment, benefiting from treatment. 2. Acid reflux. 3. Status post radiation treatment for prostate cancer. 4. History of arthritis. 5. Status post left foot surgery in 2021. 6. Status post surgical treatment for basal cell carcinoma and squamous cell carcinoma. 7. History of headaches. Plan: 1. Continue using PAP equipment every night for the whole night. CPAP unit will be replaced if develop any problems. Presently works well. 2. To change air filter at least 1-2 times per month. 3. PAP unit should stay lower then position of the head. 4. Advised patient to remove all remaining water from humidifier canister daily and make it dry after each usage. Refill canister with fresh distilled water before each usage. 5. Sleep hygiene with regular time in bed for at least 8 hours. 6. Precautions related to driving. No driving if feel any sleepiness. 7. I will maintain prescription for PAP supplies including mask, tube, filters. 8. Watching weight. 9. Follow up visit in 6 months or earlier if patient has any problems. Thank you very much for allowing me to participate in the management of your patient. Mitchel King MD, PhD, FAASM. Diplomat of [place] [employer] Sleep Medicine, Sleep Medicine Board by [place] [employer] State Wildlife Officer of [facility] [place] Objective - Vital Signs Vital signs: Vital Signs Temp 98.0 F 05/21/23 14:07 Pulse 72 05/21/23 14:07 Resp 16 05/21/23 14:07 BP 144/86 05/21/23 14:07 Pulse Ox 94 L 05/21/23 14:07 FiO2 Intake & Output 05/20/23 05/21/23 05/21/23 18:59 06:59 18:59 Weight 87.997 kg
== END ==
LOC: 3 N SLEEP 13:56
PROVIDERS: ATTEND Internal Medicine
DX: G47.33 Obstructive sleep apnea (adult) (pediatric) (principal); K21.9 Gastro-esophageal reflux disease without esophagitis; Z86.69 Personal history of other diseases of the nervous system and sense organs; Z85.46 Personal history of malignant neoplasm of prostate; Z87.39 Personal history of other diseases of the musculoskeletal system and connective tissue; Z98.890 Other specified postprocedural states; Z92.3 Personal history of irradiation; Z85.828 Personal history of other malignant neoplasm of skin; Z99.89 Dependence on other enabling machines and devices

== ENCOUNTER → 2023-12-10 | Outpatient (CLI) | payer MEDICARE, OTHER ==
[2023-12-10 14:22] VITALS: BP 144/79; PULSE 59; RESP 16; TEMP 98.1
--- NOTE | 2023-12-10 14:57 | P.PROGSL ---
Subjective DATE: 12/10/2023 FOLLOW UP VISIT. Patient with obstructive sleep apnea hypopnea syndrome return to sleep center for follow-up visit. Information from previous visit have been reviewed. Patient is using PAP equipment every night for the whole night, getting PAP supplies in time. The patient does not have significant problems with the mask, PAP unit and humidification. [place] sleepiness scale is 4, which is normal. I checked information from PAP unit. PAP unit pressure 10 cm H2O. Usage is 100% for more then 4 hours, average 6.9 hours per night. Leak is 4 l/m, which is in acceptable range. Apnea Hypopnea Index is 3.4, which is normal. MEDICATIONS have been reviewed, please see below. During physical exam: GENERAL: A pleasant patient without any distress. VITAL SIGNS: Please see below, weight is 190.4 lbs. HEENT: PERRLA, EOMI.low position of soft palate, Mallapati 4. NECK: Supple. No JVD. LUNGS: Clear to percussion and to auscultation. Good air exchange. No wheezing or rhonchi. HEART: S1, S2 regular. ABDOMEN: Soft and nontender.[] EXTREMITIES: No clubbing or cyanosis. JET WIPER: Awake, alert, and oriented x3. No focal deficit. Impressions: 1. Obstructive sleep apnea-hypopnea syndrome. Patient demonstrated great compliance with treatment, benefiting from treatment. 2. Acid reflux. 3. History of prostate cancer, s/p radiation treatment. 4. History of arthritis. 5. Status post left foot surgery in 2021. 6. History of headaches. 7. Status post surgical treatment for basal cell carcinoma and squamous cell c arcinoma. Plan: 1. Continue using PAP equipment every night for the whole night. 2. Sleep hygiene with regular time in bed for at least 7.5-8 hours 3. PAP unit should stay lower then position of the head. 4. Advised patient to remove all remaining water from humidifier canister daily and make it dry after each usage. Refill canister with fresh distilled water before each usage. 5. Watching weight. 6. Precautions related to driving. No driving if feel any sleepiness. 7. I will maintain prescription for PAP supplies including mask, tube, filters. 8. Follow up visit in 8 months or earlier if patient has any problems. Thank you very much for allowing me to participate in the management of your patient. Mitchel King MD, PhD, FAASM. Diplomat of [place] [employer] Sleep Medicine, Sleep Medicine Board by [place] [employer] Medicine Dry Cleaning Machine Operator Helper of [facility] [place] cc: Danial Capellan MD Objective - Vital Signs Vital Signs: Vital Signs Temp 98.1 F 12/10/23 14:19 Pulse 59 L 12/10/23 14:19 Resp 16 12/10/23 14:19 BP 144/79 12/10/23 14:19 Pulse Ox 95 12/10/23 14:19 FiO2 Intake & Output 12/09/23 12/10/23 12/10/23 18:59 06:59 18:59 Weight 86.296 kg Home Medications: Home Medications Medication Instructions Recorded Confirmed Type Albuterol Inhaler [Ventolin Hfa 1 puff INHALATION DAILY PRN 02/25/20 08/10/21 History Inhaler] Beclomethasone Dipropionate [Qvar 2 puff INHALATION BID 02/25/20 08/10/21 History 40 mcg Redihaler] Butalb/Acetaminophen/Caffeine 1 - 2 cap PO DAILY PRN 02/25/20 08/10/21 History [Fioricet 50-300-40 mg Capsule] Cholecalciferol [Vitamin D3 (25 1,000 unit PO DAILY 02/25/20 08/10/21 History Mcg = 1000 Iu)] Glucosam/Filipe-Msm1/C/[place]/Bosw 1 each PO DAILY 02/25/20 08/10/21 History [Glucosamine-Chondroitin Tablet] Niacinamide 500 mg PO DAILY 02/25/20 08/10/21 History Vit C/E/Zn/Coppr/Lutein/Zeaxan 1 each PO DAILY 02/25/20 08/10/21 History [Preservision Areds 2 Softgel] Zinc 50 mg PO DAILY 02/25/20 08/10/21 History DULoxetine HCL [Cymbalta] 30 mg PO HS 08/09/21 08/10/21 History Gabapentin [Neurontin] 400 mg PO HS 08/09/21 12/10/23 History Gabapentin [Neurontin] 800 mg PO 0800,1700 08/09/21 08/10/21 History HYDROcodone/APAP 7.5-325MG [[place] 1 tab PO Q4-6H PRN #28 tab 08/10/21 Rx 7.5-325] Beclomethasone Dipropionate [Qvar 2 puff INHALATION BID 12/10/23 12/10/23 History 40 mcg Redihaler] Omeprazole 20 mg PO DAILY 12/10/23 12/10/23 History Tamsulosin [Flomax] 0.4 mg PO DAILY 12/10/23 12/10/23 History
== END ==
LOC: 3 N SLEEP 13:57
PROVIDERS: ATTEND Internal Medicine
CPT/HCPCS: 99212

== ENCOUNTER → 2024-01-01 | Outpatient (CLI) | payer MEDICARE, OTHER ==
--- NOTE | 2024-01-01 15:24 | CT ---
EXAMINATION TYPE: CT brain wo con CT DLP: 1024.5 mGycm, Automated exposure control for dose reduction was used. 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 TECHNIQUE: Brain: Multiple axial CT images of the brain were obtained without IV contrast. . Coronal and sagitta l reformats reviewed. FINDINGS: Brain: Extra-axial spaces: No abnormal extra-axial fluid collections. Ventricular system: Within normal limits. Slight asymmetry of the ventricles redemonstrated which is presumed congenital variant. Cerebral parenchyma: No acute intraparenchymal hemorrhage or mass effect. The watts-white junction is well differentiated. Similar nonspecific bilateral basal ganglia calcifications. Cerebellum: Unremarkable. Mass effect: No evidence of midline shift. Intracranial vasculature: unremarkable Soft tissues: Normal. Calvarium/osseous structures: No depressed skull fracture. Paranasal sinuses and mastoid air cells: Clear Visualized orbits: Orbital contents are intact. IMPRESSION: No acute intracranial process or significant change from prior. [facility], , 01/01/2024 3:21 PM
== END | disposition home or self-care (01) ==
LOC: RADCTMAIN 13:46
PROVIDERS: ATTEND Family Medicine
DX: G44.229 Chronic tension-type headache, not intractable (principal); H53.2 Diplopia
CPT/HCPCS: 70450

== ENCOUNTER → 2024-01-05 | Outpatient (CLI) | payer MEDICARE, OTHER | END | disposition home or self-care (01) | LOC: LABWHC1 15:00 | PROVIDERS: ATTEND Psychiatry & Neurology Neurology | DX: G62.9 Polyneuropathy, unspecified (principal); Z79.899 Other long term (current) drug therapy | CPT/HCPCS: 36415; 85652; 86038; 86140 ==

== ENCOUNTER → 2024-08-11 | Outpatient (CLI) | payer MEDICARE ==
[2024-08-11 14:35] VITALS: BP 136/68; PULSE 57; RESP 16; TEMP 98
--- NOTE | 2024-08-11 14:46 | P.PROGSL ---
Subjective DATE: 08/11/2024 FOLLOW UP VISIT. Patient with obstructive sleep apnea hypopnea syndrome return to sleep center for follow-up visit. Information from previous visit have been reviewed. Patient is using PAP equipment every night for the whole night, getting PAP supplies in time. The patient does not have significant problems with the mask, PAP unit and humidification. [place] sleepiness scale is 6, which is normal. I checked information from PAP unit. PAP unit pressure 10 cm H2O. Usage is 100% for more then 4 hours, average 6.5 hours per night. Leak is in great range 1 l/m. Apnea Hypopnea Index is 1.7, which is normal. Motor life expectancy of CPAP unit was exceeded, but presently unit works well. MEDICATIONS have been reviewed, please see below. During physical exam: GENERAL: A pleasant patient without any distress. VITAL SIGNS: Please see below, weight is 193.8 lbs. HEENT: PERRLA, EOMI.low position of soft palate, Mallapati 4 . NECK: Supple. No JVD. LUNGS: Clear to percussion and to auscultation. Good air exchange. No wheezing or rhonchi. HEART: S1, S2 regular. ABDOMEN: Soft and nontender.[] EXTREMITIES: No clubbing or cyanosis. ICE PLATFORM SUPERVISOR: Awake, alert, and oriented x3. No focal deficit. Impressions: 1. Obstructive sleep apnea-hypopnea syndrome. Patient demonstrated great compliance with treatment, benefiting from treatment. 2. History of prostate cancer, status post radiation treatment. 3. Acid reflux. 4. History of arthritis. 5. History of headaches. 6. Status post surgical treatment for basal cell carcinoma and squamous cell carcinoma. 7. Status post left foot surgery in 2021. Plan: 1. Continue using PAP equipment every night for the whole night. Motor life expectancy of CPAP unit was exceeded, we will replace CPAP unit if it will not work perfectly. 2. Sleep hygiene with regular time in bed for at least 7.5-8 hours 3. PAP unit should stay lower then position of the head. 4. Advised patient to remove all remaining water from humidifier canister daily and make it dry after each usage. Refill canister with fresh distilled water before each usage. 5. Watching weight. 6. Precautions related to driving. No driving if feel any sleepiness. 7. I will maintain prescription for PAP supplies including mask, tube, filters. 8. Follow up visit in 8 months or earlier if patient has any problems. Thank you very much for allowing me to participate in the management of your patient. Mitchel King MD, PhD, FAASM. Diplomat of [place] [employer] Sleep Medicine, Sleep Medicine Board by [place] [employer] Medicine Clinical Quality Assurance Associate of [facility] [place] Objective - Vital Signs Vital Signs: Vital Signs Temp 98.0 F 08/11/24 14:32 Pulse 57 L 08/11/24 14:32 Resp 16 08/11/24 14:32 BP 136/68 08/11/24 14:32 Pulse Ox 95 08/11/24 14:32 FiO2 Intake & Output 08/10/24 08/11/24 08/11/24 18:59 06:59 18:59 Weight 87.77 kg Home Medications: Home Medications Medication Instructions Recorded Confirmed Type Albuterol Inhaler [Ventolin Hfa 1 puff INHALATION DAILY PRN 02/25/20 08/10/21 History Inhaler] Beclomethasone Dipropionate [Qvar 2 puff INHALATION BID 02/25/20 08/10/21 Histo ry 40 mcg Redihaler] Butalb/Acetaminophen/Caffeine 1 - 2 cap PO DAILY PRN 02/25/20 08/10/21 History [Fioricet 50-300-40 mg Capsule] Cholecalciferol [Vitamin D3 (25 1,000 unit PO DAILY 02/25/20 08/10/21 History Mcg = 1000 Iu)] Glucosam/Filipe-Msm1/C/[place]/Bosw 1 each PO DAILY 02/25/20 08/10/21 History [Glucosamine-Chondroitin Tablet] Niacinamide 500 mg PO DAILY 02/25/20 08/10/21 History Vit C/E/Zn/Coppr/Lutein/Zeaxan 1 each PO DAILY 02/25/20 08/10/21 History [Preservision Areds 2 Softgel] Zinc 50 mg PO DAILY 02/25/20 08/10/21 History DULoxetine HCL [Cymbalta] 30 mg PO BID 08/09/21 08/11/24 History Gabapentin [Neurontin] 400 mg PO HS 08/09/21 08/11/24 History Gabapentin [Neurontin] 800 mg PO 0800,1700 08/09/21 08/10/21 History HYDROcodone/APAP 7.5-325MG [[place] 1 tab PO Q4-6H PRN #28 tab 08/10/21 Rx 7.5-325] Beclomethasone Dipropionate [Qvar 2 puff INHALATION BID 12/10/23 12/10/23 History 40 mcg Redihaler] Omeprazole 20 mg PO DAILY 12/10/23 12/10/23 History Tamsulosin [Flomax] 0.4 mg PO DAILY 12/10/23 08/11/24 History
== END ==
LOC: 3 N SLEEP 13:58
PROVIDERS: ATTEND Internal Medicine
DX: G47.33 Obstructive sleep apnea (adult) (pediatric) (principal); K21.9 Gastro-esophageal reflux disease without esophagitis; Z82.61 Family history of arthritis; Z86.69 Personal history of other diseases of the nervous system and sense organs; Z98.890 Other specified postprocedural states; Z92.3 Personal history of irradiation; Z85.46 Personal history of malignant neoplasm of prostate; Z99.89 Dependence on other enabling machines and devices
CPT/HCPCS: 99212